=== PATIENT | female | born 2000 | race Caucasian/White ===

== ENCOUNTER 2021-02-04 15:05 | Emergency (ER) | payer OTHER, SELFPAY ==
--- NOTE | ~2021-02-04 | CT_ITS ---
EXAMINATION: CT ABDOMEN AND PELVIS WITHOUT CONTRAST CLINICAL INFORMATION: 20-year-old female patient with rectal bleeding, dark stool. COMPARISON: No pertinent prior studies are available for comparison. TECHNIQUE: Please note that this exam was not a GI bleeding study in view of the lack of IV contrast. Multidetector volumetric imaging was performed from the lung bases through the pubic symphysis following the administration of: Oral contrast: None. Intravenous contrast: None Sagittal and coronal reformatted images were obtained on the technologist workstation. Total exam dose-length product 681 mGy-cm FINDINGS: EQUIPMENT HIRE MANAGER: Unremarkable. LUNG BASES: Visualized lung bases and mediastinum are normal. No pleural effusion. LIVER, GALLBLADDER, BILIARY TREE: The non-contrast liver is normal in size, shape, and attenuation. No focal hepatic lesion or biliary ductal dilatation is present. Focal fatty infiltration is seen adjacent to the ligamentum teres. The gallbladder is contracted in this postprandial patient. PANCREAS: Normal; no mass or surrounding fluid. SPLEEN: Normal size. No focal lesion. Small accessory spleen is present. ADRENAL GLANDS: Normal; no mass. KIDNEYS AND URETERS: The kidneys are normal in size, shape, and attenuation. No hydronephrosis, hydroureter, or calculi seen. No perinephric stranding. BLADDER: Empty. GASTROINTESTINAL TRACT: Stomach and small bowel non-dilated. No colonic wall thickening or pericolonic inflammatory changes. A small amount of radiopaque material is seen in the stomach having been recently ingested. Also, a small amount of radiopaque material is seen in a normal appendix. No free fluid or free air. ABDOMINAL WALL: No hernia seen. LYMPHOVASCULAR STRUCTURES: No lymphadenopathy. However, small lymph nodes are seen in the small bowel mesentery particularly in the right lower quadrant. The aorta is normal in caliber. PELVIC VISCERA: Anteverted uterus is normal in size and shape. Immature follicles are present in both ovaries. No free fluid. OSSEOUS STRUCTURES: No acute or suspicious osseous abnormality. CT/CT abdomen pelvis wo con IMPRESSION: No significant abnormality seen.
[2021-02-04 15:15] VITALS: BP 117/78; PULSE 84; RESP 16; TEMP 36.8; O2SAT 100; BMI 29.1
[2021-02-04 17:25] LABS: MANUAL DIFF FLAG NO
[2021-02-04 17:26] LABS: Basophils Percent Auto 0.2 % (0-2); Eosinophils Absolute Auto 0.1 X10*3/uL (0.0-0.4); Eosinophils Percent Auto 0.9 % (0-4); Hematocrit 41.2 % (37-47); Hemoglobin 13.3 g/dl (12.0-16.0); Imm Gran Abs Auto 0.02 X10*3/uL (0.00-0.03); Imm Gran Pct Auto 0.2 % (0.0-0.4); Lymphocytes Absolute Auto 2.8 X10*3/uL (1.2-4.9); Mean Corpuscular HGB Conc 32.3 g/dl (31.0-35.0); Mean Corpuscular Hemoglobin 25.1 pg (27.0-33.0); Mean Corpuscular Volume 77.7 fL (80-98); Mean Platelet Volume 10.6 fL (9.4-12.3); Monocytes Absolute Auto 0.7 X10*3/uL (0.1-1.2); Neutrophils Absolute Auto 4.6 X10*3/uL (2.0-8.3); Neutrophils Percent Auto 56.7 % (45-73); Platelet Count 309 X10*3/uL (160-400); Red Cell Distribution Width 13.8 % (11.0-16.0); White Blood Count 8.1 X10*3/uL (4.8-10.8)
[2021-02-04 17:41] LABS: Anion Gap 13 (12-20); Blood Urea Nitrogen 12 mg/dL (9-16); Carbon Dioxide 25 mmol/L (22-29); Chloride 104 mmol/L (96-108); Creatinine Clr Calc Pharmacy 117.7; Estimated Glomerular Filt Rate > 60; Glucose Random 86 mg/dL (60-115); Potassium 4.1 mmol/L (3.3-5.1); Sodium 138 mmol/L (135-145)
[2021-02-04 19:08] LABS: MANUAL DIFF FLAG NO
[2021-02-04 19:09] LABS: Basophils Percent Auto 0.2 % (0-2); Eosinophils Absolute Auto 0.1 X10*3/uL (0.0-0.4); Eosinophils Percent Auto 0.9 % (0-4); Hematocrit 40.2 % (37-47); Hemoglobin 13.4 g/dl (12.0-16.0); Imm Gran Abs Auto 0.01 X10*3/uL (0.00-0.03); Imm Gran Pct Auto 0.1 % (0.0-0.4); Lymphocytes Absolute Auto 2.9 X10*3/uL (1.2-4.9); Lymphocytes Percent Auto 34.2 % (20-40); Mean Corpuscular HGB Conc 33.3 g/dl (31.0-35.0); Mean Corpuscular Hemoglobin 25.8 pg (27.0-33.0); Mean Corpuscular Volume 77.5 fL (80-98); Monocytes Absolute Auto 0.6 X10*3/uL (0.1-1.2); Monocytes Percent Auto 7.1 % (2-11); Neutrophils Absolute Auto 4.9 X10*3/uL (2.0-8.3); Neutrophils Percent Auto 57.5 % (45-73); Platelet Count 319 X10*3/uL (160-400); Red Blood Count 5.19 X10*6/uL (4.20-5.50); Red Cell Distribution Width 13.8 % (11.0-16.0); White Blood Count 8.5 X10*3/uL (4.8-10.8)
[2021-02-04 19:16] LABS: INTERNATIONAL NORM RATIO 1.2 (0.9-1.1); Prothrombin Time 13.7 SEC (10.8-13.0)
[2021-02-04 19:19] LABS: Partial Thromboplastin Time 36.7 SEC (24.1-38.0)
[2021-02-04 19:36] LABS: Alanine Aminotransferase 22 U/L (0-31); Albumin Level 4.3 g/dL (3.5-5.0); Alkaline Phosphatase 94 U/L (39-117); Anion Gap 14 (12-20); Aspartate Amino Transferase 19 U/L (5-31); Bilirubin Direct 0.2 mg/dL (0.0-0.5); Bilirubin Total 0.4 mg/dL (0.0-1.0); Blood Urea Nitrogen 11 mg/dL (9-16); Calcium 8.7 mg/dL (8.4-10.2); Carbon Dioxide 23 mmol/L (22-29); Chloride 104 mmol/L (96-108); Creatinine Clr Calc Pharmacy 114.8; Estimated Glomerular Filt Rate > 60; Glucose Random 91 mg/dL (60-115); Magnesium 2.1 mg/dL (1.6-2.6); Potassium 3.6 mmol/L (3.3-5.1); Sodium 137 mmol/L (135-145); Total Protein 7.7 g/dL (6.5-8.0)
[2021-02-04 19:42] LABS: HCG Quantitative < 2 mIU/mL
[2021-02-04 20:37] VITALS: BP 111/76; PULSE 82; RESP 18; O2SAT 100
--- NOTE | 2021-02-04 20:47 | ED_ITS ---
HPI - GI Bleed General Chief complaint: General Medical <MAHAMED Sparks - Last Filed: 02/04/21 20:56> Stated complaint: Personal <MAHAMED Sparks Last Filed: 02/04/21 20:56> Time Seen by Provider: 02/04/21 18:23 <MAHAMED Sparks Last Filed: 02/04/21 20:56> Source: patient and family <MAHAMED Sparks Last Filed: 02/04/21 20:56> Mode of arrival: ambulatory <MAHAMED Sparks Last Filed: 02/04/21 20:56> Limitations: no limitations <MAHAMED Sparks Last Filed: 02/04/21 20:56> History of Present Illness HPI Narrative: 20-year-old female with no significant past medical history presenting to the ED with complaints of intermittent bloody stools for the past month with bright red blood and dark stools worse within the past couple days with clots in the toilet and when wiping even without a bowel movement. Reports she has associated intermittent abdominal pain. Reports that there is a long family history of Crohn's disease and cancer. Patient denies any fevers, nausea/vomiting, chest pain, shortness of breath, vomiting any blood, back pain, hematuria, dysuria, vaginal discharge, diarrhea or constipation or any other symptoms complaints or concerns at this time. Denies being on any blood thinners. <MAHAMED Sparks Last Filed: 02/04/21 20:56> MD complaint: blood on toilet paper, melena, blood streaked stool and gross hematochezia <MAHAMED Sparks Last Filed: 02/04/21 20:56> Onset (ago): month(s) (Over the past month worse within this past week) <MAHAMED Sparks Last Filed: 02/04/21 20:56> Pain Consistency: intermittent <MAHAMED Sparks Last Filed: 02/04/21 20:56> Severity: moderate <MAHAMED Sparks Last Filed: 02/04/21 20:56> Relieving factors: none <MAHAMED Sparks Last Filed: 02/04/21 20:56> Exacerbating factors: bowel movement <MAHAMED Sparks Last Filed: 02/04/21 20:56> Associated symptoms: abdominal pain <MAHAMED Sparks Last Filed: 02/04/21 20:56> Treatments Prior to Arrival: none <MAHAMED Sparks Last Filed: 02/04/21 20:56> Related Data Allergies/Adverse reactions: Allergies Allergy/AdvReac Type Severity Reaction Status Date / Time No Known Allergies Allergy Verified 02/04/21 18:47 <MAHAMED Sparks - Last Filed: 02/04/21 20:56> Review of Systems Review of Systems: Constitutional : No Weight loss, No Fever, No Chills, No Night Sweats, No Fatigue, NoMalaise ENT/Mouth: No ear pain, No sore throat, No Difficulty swallowing Cardiovascular : No Chest Pain, No SOB, No Dyspnea on Exertion, No Orthopnea, NoEdema, No Palpitations Respiratory : No Cough, No Sputum, No Wheezing, No Dyspnea Gastrointestinal : + Abdominal pain, + Melena, + Hematochezia, No Nausea, No Vomiting, No Diarrhea Genitourinary : No irregular bleeding, No Dysuria, No Urinary Frequency, No Hematuria,No Urinary Incontinence, No Urgency, No Flank Pain Musculoskeletal : No joint pain, No Myalgias, No Joint Swelling Skin : No Skin Lesions, No rash Neuro : No Weakness, No Numbness, No Paresthesias, No Loss of Consciousness, NoDizziness, No Headache Psych : No Social Issues, Heme/Lymph: No Bruising, No Bleeding,No Lymphadenopathy Endocrine : No Polyuria, No Polydipsia, No Temperature Intolerance <MAHAMED Sparks Last Filed: 02/04/21 20:56> Yes all other systems are reviewed and are negative <MAHAMED Sparks Last Filed: 02/04/21 20:56> [facility] Past Medical History Attestation statement: The following information was validated with the patient. <MAHAMED Sparks Last Filed: 02/04/21 20:56> Social History Social History: Social History Advance Directives: No Advance Directives Information Provided: Yes <MAHAMED Sparks Last Filed: 02/04/21 20:56> Physical Exam Vital Signs: Vital Signs: Last Vital Signs Temp 98.2 F 02/04/21 15:15 Pulse 82 02/04/21 20:37 Resp 18 02/04/21 20:37 BP 111/76 02/04/21 20:37 Pulse Ox 100 02/04/21 20:37 Body Mass Index 29.1 vital signs have been reviewed as normal and appeared to be correct. Blood pressure normal. Heart rate normal. Respiration rate normal. Temperature norm al. Oxygen saturation normal. <MAHAMED Sparks - Last Filed: 02/04/21 20:56> Vital Signs: Last Vital Signs Temp 98.2 F 02/04/21 15:15 Pulse 82 02/04/21 20:37 Resp 18 02/04/21 20:37 BP 111/76 02/04/21 20:37 Pulse Ox 100 02/04/21 20:37 Body Mass Index 29.1 <Belle Zaman MD - Last Filed: 02/04/21 22:31> Appearance: Alert. Oriented X3. No acute distress. Head: Normal external exam. Normocephalic. Eyes: PERRLA. EOMI. Conjunctiva and sclera normal. Eyelids normal. ENT: Pharynx normal. Uvula midline. Moist mucous membranes. Neck: Normal inspection. Neck supple. FROM. No adenopathy. No meningeal signs. CVS: Normal heart rate and rhythm. Heart sound normal. No murmurs noted. Pulses normal throughout. Respiratory: No respiratory distress. Painless inspiration. Breath sounds normal. No wheezes/rales/rhonchi noted. Chest nontender. No accessory muscle usage noted or decreased air movement noted. Abdomen: Soft and nontender. Nondistended. No guarding. No rigidity. Bowel sounds normal in all 4 quadrants. No distention noted. No organomegaly noted. No visible injury noted. No rebound tenderness. Negative Rovsing sign. Negative obturator's sign. Negative psoas sign. Negative Dickens sign. : Mail Room present Neurpa, PCT. Normal external exam. No hemorrhoids noted. Normal sphincter tone. No internal hemorrhoids noted. Not consistent with rectal prolapse or fecal impaction. No lesion/anal fissures/f istula/laceration/excoriation/mass noted. Heme-positive stool with light brown colored stool. Back: No CVA tenderness. Full range of motion noted. Skin: Skin warm and dry. Normal skin color. Normal skin turgor. No rashes/lesions/lacerations noted. Extremities: Extremities exhibit normal range of motion. Extremities nontender. Neuro: Oriented X 3. No motor deficit. No sensory deficit. Reflexes normal. <MAHAMED Sparks - Last Filed: 02/04/21 20:56> Course Course Course Narrative: 18:50pm - 20-year-old female with no significant past medical history presenting to the ED with complaints of intermittent bloody stools for the past month with bright red blood and dark stools worse within the past couple days with clots in the toilet and when wiping even without a bowel movement. Reports she has associated intermittent abdominal pain. - on exam patient is alert and oriented x3. Not in any acute distress. Vital signs are stable within normal limits. Abdomen is soft and nontender. Not consistent with acute abdomen. On rectal exam patient is positive for heme stool occult. No external or internal hemorrhoids noted. Normal sphincter tone. - Plan: Labs, UA, UHCG, CT scan of abdomen and pelvis without IV contrast provide a L of IV fluids and re-evaluate. <MAHAMED Sparks - Last Filed: 02/04/21 20:56> I received sign-out from MAHAMED Valdivia, CT scan shows no acute pathology. Urinalysis negative test negative. White test negative. I discussed the results with the patient and her mother, patient will likely need GI follow-up LUNG BASES: Visualized lung bases and mediastinum are normal. No pleural effusion. LIVER, GALLBLADDER, BILIARY TREE: The non-contrast liver is normal in size, shape, and attenuation. No focal hepatic lesion or biliary ductal dilatation is present. Focal fatty infiltration is seen adjacent to the ligamentum teres. The gallbladder is contracted in this postprandial patient. PANCREAS: Normal; no mass or surrounding fluid. SPLEEN: Normal size. No focal lesion. Small accessory spleen is present. ADRENAL GLANDS: Normal; no mass. KIDNEYS AND URETERS: The kidneys are normal in size, shape, and attenuation. No hydronephrosis, hydroureter, or calculi seen. No perinephric stranding. BLADDER: Empty. GASTROINTESTINAL TRACT: Stomach and small bowel non-dilated. No colonic wall thickening or pericolonic inflammatory changes. A small amount of radiopaque material is seen in the stomach having been recently ingested. Also, a small amount of radiopaque material is seen in a normal appendix. No free fluid or free air. ABDOMINAL WALL: No hernia seen. LYMPHOVASCULAR STRUCTURES: No lymphadenopathy. However, small lymph nodes are seen in the small bowel mesentery particularly in the right lower quadrant. The aorta is normal in caliber. PELVIC VISCERA: Anteverted uterus is normal in size and shape. Immature follicles are present in both ovaries. No free fluid. OSSEOUS STRUCTURES: No acute or suspicious osseous abnormality. CT/CT abdomen pelvis wo con IMPRESSION: No significant abnormality seen. <Belle Zaman MD - Last Filed: 02/04/21 22:31> Reevaluation(s) Reevaluation #1: - all labs within normal limits. Serum quant negative for . - awaiting CT scan of abdomen and pelvis. Sign out to Nazario, EVS MANAGER at this time pending CT scan of abdomen and pelvis. <MAHAMED Sparks - Last Filed: 02/04/21 20:56> Time: 20:55 <MAHAMED Sparks - Last Filed: 02/04/21 20:56> MDM - GI Bleed Differential Diagnosis Differential diagnosis: Likely hemorrhoids, Upper gastrointestinal hemorrhage, Lower gastrointestinal hemorrhage, hematochezia, melena and anal fissure <MAHAMED Sparks - Last Filed: 02/04/21 20:56> Medical Records Attestation: I reviewed the patient's medical records. <MAHAMED Sparks - Last Filed: 02/04/21 20:56> Lab Data Attestation: I reviewed the patient's lab results. <MAHAMED Sparks - Last Filed: 02/04/21 20:56> Result diagrams: : 02/04/21 19:02 02/04/21 19:03 <MAHAMED Sparks - Last Filed: 02/04/21 20:56> Labs: Lab Results 02/04/21 02/04/21 02/04/21 Range/Units 16:50 16:50 16:50 WBC 8.1 (4.8-10.8) X10*3/uL RBC 5.30 (4.20-5.50) X10*6/uL Hgb 13.3 (12.0-16.0) g/dl Hct 41.2 (37-47) % MCV 77.7 L (80-98) fL MCH 25.1 L (27.0-33.0) pg MCHC 32.3 (31.0-35.0) g/dl RDW 13.8 (11.0-16.0) % Plt Count 309 (160-400) X10*3/uL MPV 10.6 (9.4-12.3) fL Immature Gran % (Auto) 0.2 (0.0-0.4) % Neut % (Auto) 56.7 (45-73) % Lymph % (Auto) 34.0 (20-40) % Mccormick % (Auto) 8.0 (2-11) % Eos % (Auto) 0.9 (0-4) % Baso % (Auto) 0.2 (0-2) % Lymph # (Auto) 2.8 (1.2-4.9) X10*3/uL Mccormick # (Auto) 0.7 (0.1-1.2) X10*3/uL Eos # (Auto) 0.1 (0.0-0.4) X10*3/uL Baso # (Auto) 0.0 (0.0-0.2) X10*3/uL Abs Immat Gran (auto) 0.02 (0.00-0.03) X10*3/uL Absolute Neuts (auto) 4.6 (2.0-8.3) X10*3/uL Absolute Nucleated RBC 0.000 (0.0-0.012) X10*3/uL Nucleated RBC % (auto) 0.0 (0.0-0.2) /100WBC Hold Purple Top SEE NOTE PT (10.8-13.0) SEC INR (0.9-1.1) APTT (24.1-38.0) SEC Hold Blue Top SEE NOTE Sodium (135-145) mmol/L Potassium (3.3-5.1) mmol/L Chloride (96-108) mmol/L Carbon Dioxide (22-29) mmol/L Anion Gap (12-20) BUN (9-16) mg/dL Creatinine (0.5-1.4) mg/dL Estim Creat Clear Calc Estimated GFR Random Glucose (60-115) mg/dL Calcium (8.4-10.2) mg/dL Magnesium (1.6-2.6) mg/dL Total Bilirubin (0.0-1.0) mg/dL Direct Bilirubin (0.0-0.5) mg/dL AST (5-31) U/L ALT (0-31) U/L Alkaline Phosphatase (39-117) U/L Total Protein (6.5-8.0) g/dL Albumin (3.5-5.0) g/dL Beta HCG, Quant mIU/mL Urine Color Urine Appearance Urine pH (5.0-8.0) Ur Specific [place] (1.005-1.025) Urine Protein (NEG-TRACE) MG/DL Urine Glucose (UA) (NEG) MG/DL Urine Ketones (NEG) MG/DL Urine Blood (NEG) Urine Nitrite (NEG) Ur Leukocyte Esterase (NEG) Urine Test (NEGATIVE) Stool Occult Blood (NEGATIVE) 02/04/21 02/04/21 02/04/21 Range/Units 16:50 19:02 19:02 WBC 8.5 (4.8-10.8) X10*3/uL RBC 5.19 (4.20-5.50) X10*6/uL Hgb 13.4 (12.0-16.0) g/dl Hct 40.2 (37-47) % MCV 77.5 L (80-98) fL MCH 25.8 L (27.0-33.0) pg MCHC 33.3 (31.0-35.0) g/dl RDW 13.8 (11.0-16.0) % Plt Count 319 (160-400) X10*3/uL MPV 10.0 (9.4-12.3) fL Immature Gran % (Auto) 0.1 (0.0-0.4) % Neut % (Auto) 57.5 (45-73) % Lymph % (Auto) 34.2 (20-40) % Mccormick % (Auto) 7.1 (2-11) % Eos % (Auto) 0.9 (0-4) % Baso % (Auto) 0.2 (0-2) % Lymph # (Auto) 2.9 (1.2-4.9) X10*3/uL Mccormick # (Auto) 0.6 (0.1-1.2) X10*3/uL Eos # (Auto) 0.1 (0.0-0.4) X10*3/uL Baso # (Auto) 0.0 (0.0-0.2) X10*3/uL Abs Immat Gran (auto) 0.01 (0.00-0.03) X10*3/uL Absolute Neuts (auto) 4.9 (2.0-8.3) X10*3/uL Absolute Nucleated RBC 0.000 (0.0-0.012) X10*3/uL Nucleated RBC % (auto) 0.0 (0.0-0.2) /100WBC Hold Purple Top PT 13.7 H (10.8-13.0) SEC INR 1.2 H (0.9-1.1) APTT 36.7 (24.1-38.0) SEC Hold Blue Top Sodium 138 (135-145) mmol/L Potassium 4.1 (3.3-5.1) mmol/L Chloride 104 (96-108) mmol/L Carbon Dioxide 25 (22-29) mmol/L Anion Gap 13 (12-20) BUN 12 (9-16) mg/dL Creatinine 0.78 (0.5-1.4) mg/dL Estim Creat Clear Calc 117.7 Estimated GFR > 60 Random Glucose 86 (60-115) mg/dL Calcium 9.0 (8.4-10.2) mg/dL Magnesium (1.6-2.6) mg/dL Total Bilirubin (0.0-1.0) mg/dL Direct Bilirubin (0.0-0.5) mg/dL AST (5-31) U/L ALT (0-31) U/L Alkaline Phosphatase (39-117) U/L Total Protein (6.5-8.0) g/dL Albumin (3.5-5.0) g/dL Beta HCG, Quant mIU/mL Urine Color Urine Appearance Urine pH (5.0-8.0) Ur Specific [place] (1.005-1.025) Urine Protein (NEG-TRACE) MG/DL Urine Glucose (UA) (NEG) MG/DL Urine Ketones (NEG) MG/DL Urine Blood (NEG) Urine Nitrite (NEG) Ur Leukocyte Esterase (NEG) Urine Test (NEGATIVE) Stool Occult Blood (NEGATIVE) 02/04/21 02/04/21 02/04/21 Range/Units 19:03 20:40 20:40 WBC (4.8-10.8) X10*3/uL RBC (4.20-5.50) X10*6/uL Hgb (12.0-16.0) g/dl Hct (37-47) % MCV (80-98) fL MCH (27.0-33.0) pg MCHC (31.0-35.0) g/dl RDW (11.0-16.0) % Plt Count (160-400) X10*3/uL MPV (9.4-12.3) fL Immature Gran % (Auto) (0.0-0.4) % Neut % (Auto) (45-73) % Lymph % (Auto) (20-40) % Mccormick % (Auto) (2-11) % Eos % (Auto) (0-4) % Baso % (Auto) (0-2) % Lymph # (Auto) (1.2-4.9) X10*3/uL Mccormick # (Auto) (0.1-1.2) X10*3/uL Eos # (Auto) (0.0-0.4) X10*3/uL Baso # (Auto) (0.0-0.2) X10*3/uL Abs Immat Gran (auto) (0.00-0.03) X10*3/uL Absolute Neuts (auto) (2.0-8.3) X10*3/uL Absolute Nucleated RBC (0.0-0.012) X10*3/uL Nucleated RBC % (auto) (0.0-0.2) /100WBC Hold Purple Top PT (10.8-13.0) SEC INR (0.9-1.1) APTT (24.1-38.0) SEC Hold Blue Top Sodium 137 (135-145) mmol/L Potassium 3.6 (3.3-5.1) mmol/L Chloride 104 (96-108) mmol/L Carbon Dioxide 23 (22-29) mmol/L Anion Gap 14 (12-20) BUN 11 (9-16) mg/dL Creatinine 0.80 (0.5-1.4) mg/dL Estim Creat Clear Calc 114.8 Estimated GFR > 60 Random Glucose 91 (60-115) mg/dL Calcium 8.7 (8.4-10.2) mg/dL Magnesium 2.1 (1.6-2.6) mg/dL Total Bilirubin 0.4 (0.0-1.0) mg/dL Direct Bilirubin 0.2 (0.0-0.5) mg/dL AST 19 (5-31) U/L ALT 22 (0-31) U/L Alkaline Phosphatase 94 (39-117) U/L Total Protein 7.7 (6.5-8.0) g/dL Albumin 4.3 (3.5-5.0) g/dL Beta HCG, Quant < 2 mIU/mL Urine Color YELLOW Urine Appearance CLEAR Urine pH 6.0 (5.0-8.0) Ur Specific [place] 1.020 (1.005-1.025) Urine Protein NEG (NEG-TRACE) MG/DL Urine Glucose (UA) NEG (NEG) MG/DL Urine Ketones NEG (NEG) MG/DL Urine Blood NEG (NEG) Urine Nitrite NEG (NEG) Ur Leukocyte Esterase NEG (NEG) Urine Test (NEGATIVE) Stool Occult Blood NEGATIVE (NEGATIVE) 02/04/21 Range/Units 20:40 WBC (4.8-10.8) X10*3/uL RBC (4.20-5.50) X10*6/uL Hgb (12.0-16.0) g/dl Hct (37-47) % MCV (80-98) fL MCH (27.0-33.0) pg MCHC (31.0-35.0) g/dl RDW (11.0-16.0) % Plt Count (160-400) X10*3/uL MPV (9.4-12.3) fL Immature Gran % (Auto) (0.0-0.4) % Neut % (Auto) (45-73) % Lymph % (Auto) (20-40) % Mccormick % (Auto) (2-11) % Eos % (Auto) (0-4) % Baso % (Auto) (0-2) % Lymph # (Auto) (1.2-4.9) X10*3/uL Mccormick # (Auto) (0.1-1.2) X10*3/uL Eos # (Auto) (0.0-0.4) X10*3/uL Baso # (Auto) (0.0-0.2) X10*3/uL Abs Immat Gran (auto) (0.00-0.03) X10*3/uL Absolute Neuts (auto) (2.0-8.3) X10*3/uL Absolute Nucleated RBC (0.0-0.012) X10*3/uL Nucleated RBC % (auto) (0.0-0.2) /100WBC Hold Purple Top PT (10.8-13.0) SEC INR (0.9-1.1) APTT (24.1-38.0) SEC Hold Blue Top Sodium (135-145) mmol/L Potassium (3.3-5.1) mmol/L Chloride (96-108) mmol/L Carbon Dioxide (22-29) mmol/L Anion Gap (12-20) BUN (9-16) mg/dL Creatinine (0.5-1.4) mg/dL Estim Creat Clear Calc Estimated GFR Random Glucose (60-115) mg/dL Calcium (8.4-10.2) mg/dL Magnesium (1.6-2.6) mg/dL Total Bilirubin (0.0-1.0) mg/dL Direct Bilirubin (0.0-0.5) mg/dL AST (5-31) U/L ALT (0-31) U/L Alkaline Phosphatase (39-117) U/L Total Protein (6.5-8.0) g/dL Albumin (3.5-5.0) g/dL Beta HCG, Quant mIU/mL Urine Color Urine Appearance Urine pH (5.0-8.0) Ur Specific [place] (1.005-1.025) Urine Protein (NEG-TRACE) MG/DL Urine Glucose (UA) (NEG) MG/DL Urine Ketones (NEG) MG/DL Urine Blood (NEG) Urine Nitrite (NEG) Ur Leukocyte Esterase (NEG) Urine Test NEGATIVE (NEGATIVE) Stool Occult Blood (NEGATIVE) <MAHAMED Sparks - Last Filed: 02/04/21 20:56> Lab Results 02/04/21 02/04/21 02/04/21 Range/Units 16:50 16:50 16:50 WBC 8.1 (4.8-10.8) X10*3/uL RBC 5.30 (4.20-5.50) X10*6/uL Hgb 13.3 (12.0-16.0) g/dl Hct 41.2 (37-47) % MCV 77.7 L (80-98) fL MCH 25.1 L (27.0-33.0) pg MCHC 32.3 (31.0-35.0) g/dl RDW 13.8 (11.0-16.0) % Plt Count 309 (160-400) X10*3/uL MPV 10.6 (9.4-12.3) fL Immature Gran % (Auto) 0.2 (0.0-0.4) % Neut % (Auto) 56.7 (45-73) % Lymph % (Auto) 34.0 (20-40) % Mccormick % (Auto) 8.0 (2-11) % Eos % (Auto) 0.9 (0-4) % Baso % (Auto) 0.2 (0-2) % Lymph # (Auto) 2.8 (1.2-4.9) X10*3/uL Mccormick # (Auto) 0.7 (0.1-1.2) X10*3/uL Eos # (Auto) 0.1 (0.0-0.4) X10*3/uL Baso # (Auto) 0.0 (0.0-0.2) X10*3/uL Abs Immat Gran (auto) 0.02 (0.00-0.03) X10*3/uL Absolute Neuts (auto) 4.6 (2.0-8.3) X10*3/uL Absolute Nucleated RBC 0.000 (0.0-0.012) X10*3/uL Nucleated RBC % (auto) 0.0 (0.0-0.2) /100WBC Hold Purple Top SEE NOTE PT (10.8-13.0) SEC INR (0.9-1.1) APTT (24.1-38.0) SEC Hold Blue Top SEE NOTE Sodium (135-145) mmol/L Potassium (3.3-5.1) mmol/L Chloride (96-108) mmol/L Carbon Dioxide (22-29) mmol/L Anion Gap (12-20) BUN (9-16) mg/dL Creatinine (0.5-1.4) mg/dL Estim Creat Clear Calc Estimated GFR Random Glucose (60-115) mg/dL Calcium (8.4-10.2) mg/dL Magnesium (1.6-2.6) mg/dL Total Bilirubin (0.0-1.0) mg/dL Direct Bilirubin (0.0-0.5) mg/dL AST (5-31) U/L ALT (0-31) U/L Alkaline Phosphatase (39-117) U/L Total Protein (6.5-8.0) g/dL Albumin (3.5-5.0) g/dL Beta HCG, Quant mIU/mL Urine Color Urine Appearance Urine pH (5.0-8.0) Ur Specific [place] (1.005-1.025) Urine Protein (NEG-TRACE) MG/DL Urine Glucose (UA) (NEG) MG/DL Urine Ketones (NEG) MG/DL Urine Blood (NEG) Urine Nitrite (NEG) Ur Leukocyte Esterase (NEG) Urine Test (NEGATIVE) Stool Occult Blood (NEGATIVE) 02/04/21 02/04/21 02/04/21 Range/Units 16:50 19:02 19:02 WBC 8.5 (4.8-10.8) X10*3/uL RBC 5.19 (4.20-5.50) X10*6/uL Hgb 13.4 (12.0-16.0) g/dl Hct 40.2 (37-47) % MCV 77.5 L (80-98) fL MCH 25.8 L (27.0-33.0) pg MCHC 33.3 (31.0-35.0) g/dl RDW 13.8 (11.0-16.0) % Plt Count 319 (160-400) X10*3/uL MPV 10.0 (9.4-12.3) fL Immature Gran % (Auto) 0.1 (0.0-0.4) % Neut % (Auto) 57.5 (45-73) % Lymph % (Auto) 34.2 (20-40) % Mccormick % (Auto) 7.1 (2-11) % Eos % (Auto) 0.9 (0-4) % Baso % (Auto) 0.2 (0-2) % Lymph # (Auto) 2.9 (1.2-4.9) X10*3/uL Mccormick # (Auto) 0.6 (0.1-1.2) X10*3/uL Eos # (Auto) 0.1 (0.0-0.4) X10*3/uL Baso # (Auto) 0.0 (0.0-0.2) X10*3/uL Abs Immat Gran (auto) 0.01 (0.00-0.03) X10*3/uL Absolute Neuts (auto) 4.9 (2.0-8.3) X10*3/uL Absolute Nucleated RBC 0.000 (0.0-0.012) X10*3/uL Nucleated RBC % (auto) 0.0 (0.0-0.2) /100WBC Hold Purple Top PT 13.7 H (10.8-13.0) SEC INR 1.2 H (0.9-1.1) APTT 36.7 (24.1-38.0) SEC Hold Blue Top Sodium 138 (135-145) mmol/L Potassium 4.1 (3.3-5.1) mmol/L Chloride 104 (96-108) mmol/L Carbon Dioxide 25 (22-29) mmol/L Anion Gap 13 (12-20) BUN 12 (9-16) mg/dL Creatinine 0.78 (0.5-1.4) mg/dL Estim Creat Clear Calc 117.7 Estimated GFR > 60 Random Glucose 86 (60-115) mg/dL Calcium 9.0 (8.4-10.2) mg/dL Magnesium (1.6-2.6) mg/dL Total Bilirubin (0.0-1.0) mg/dL Direct Bilirubin (0.0-0.5) mg/dL AST (5-31) U/L ALT (0-31) U/L Alkaline Phosphatase (39-117) U/L Total Protein (6.5-8.0) g/dL Albumin (3.5-5.0) g/dL Beta HCG, Quant mIU/mL Urine Color Urine Appearance Urine pH (5.0-8.0) Ur Specific [place] (1.005-1.025) Urine Protein (NEG-TRACE) MG/DL Urine Glucose (UA) (NEG) MG/DL Urine Ketones (NEG) MG/DL Urine Blood (NEG) Urine Nitrite (NEG) Ur Leukocyte Esterase (NEG) Urine Test (NEGATIVE) Stool Occult Blood (NEGATIVE) 02/04/21 02/04/21 02/04/21 Range/Units 19:03 20:40 20:40 WBC (4.8-10.8) X10*3/uL RBC (4.20-5.50) X10*6/uL Hgb (12.0-16.0) g/dl Hct (37-47) % MCV (80-98) fL MCH (27.0-33.0) pg MCHC (31.0-35.0) g/dl RDW (11.0-16.0) % Plt Count (160-400) X10*3/uL MPV (9.4-12.3) fL Immature Gran % (Auto) (0.0-0.4) % Neut % (Auto) (45-73) % Lymph % (Auto) (20-40) % Mccormick % (Auto) (2-11) % Eos % (Auto) (0-4) % Baso % (Auto) (0-2) % Lymph # (Auto) (1.2-4.9) X10*3/uL Mccormick # (Auto) (0.1-1.2) X10*3/uL Eos # (Auto) (0.0-0.4) X10*3/uL Baso # (Auto) (0.0-0.2) X10*3/uL Abs Immat Gran (auto) (0.00-0.03) X10*3/uL Absolute Neuts (auto) (2.0-8.3) X10*3/uL Absolute Nucleated RBC (0.0-0.012) X10*3/uL Nucleated RBC % (auto) (0.0-0.2) /100WBC Hold Purple Top PT (10.8-13.0) SEC INR (0.9-1.1) APTT (24.1-38.0) SEC Hold Blue Top Sodium 137 (135-145) mmol/L Potassium 3.6 (3.3-5.1) mmol/L Chloride 104 (96-108) mmol/L Carbon Dioxide 23 (22-29) mmol/L Anion Gap 14 (12-20) BUN 11 (9-16) mg/dL Creatinine 0.80 (0.5-1.4) mg/dL Estim Creat Clear Calc 114.8 Estimated GFR > 60 Random Glucose 91 (60-115) mg/dL Calcium 8.7 (8.4-10.2) mg/dL Magnesium 2.1 (1.6-2.6) mg/dL Total Bilirubin 0.4 (0.0-1.0) mg/dL Direct Bilirubin 0.2 (0.0-0.5) mg/dL AST 19 (5-31) U/L ALT 22 (0-31) U/L Alkaline Phosphatase 94 (39-117) U/L Total Protein 7.7 (6.5-8.0) g/dL Albumin 4.3 (3.5-5.0) g/dL Beta HCG, Quant < 2 mIU/mL Urine Color YELLOW Urine Appearance CLEAR Urine pH 6.0 (5.0-8.0) Ur Specific [place] 1.020 (1.005-1.025) Urine Protein NEG (NEG-TRACE) MG/DL Urine Glucose (UA) NEG (NEG) MG/DL Urine Ketones NEG (NEG) MG/DL Urine Blood NEG (NEG) Urine Nitrite NEG (NEG) Ur Leukocyte Esterase NEG (NEG) Urine Test (NEGATIVE) Stool Occult Blood NEGATIVE (NEGATIVE) 02/04/21 Range/Units 20:40 WBC (4.8-10.8) X10*3/uL RBC (4.20-5.50) X10*6/uL Hgb (12.0-16.0) g/dl Hct (37-47) % MCV (80-98) fL MCH (27.0-33.0) pg MCHC (31.0-35.0) g/dl RDW (11.0-16.0) % Plt Count (160-400) X10*3/uL MPV (9.4-12.3) fL Immature Gran % (Auto) (0.0-0.4) % Neut % (Auto) (45-73) % Lymph % (Auto) (20-40) % Mccormick % (Auto) (2-11) % Eos % (Auto) (0-4) % Baso % (Auto) (0-2) % Lymph # (Auto) (1.2-4.9) X10*3/uL Mccormick # (Auto) (0.1-1.2) X10*3/uL Eos # (Auto) (0.0-0.4) X10*3/uL Baso # (Auto) (0.0-0.2) X10*3/uL Abs Immat Gran (auto) (0.00-0.03) X10*3/uL Absolute Neuts (auto) (2.0-8.3) X10*3/uL Absolute Nucleated RBC (0.0-0.012) X10*3/uL Nucleated RBC % (auto) (0.0-0.2) /100WBC Hold Purple Top PT (10.8-13.0) SEC INR (0.9-1.1) APTT (24.1-38.0) SEC Hold Blue Top Sodium (135-145) mmol/L Potassium (3.3-5.1) mmol/L Chloride (96-108) mmol/L Carbon Dioxide (22-29) mmol/L Anion Gap (12-20) BUN (9-16) mg/dL Creatinine (0.5-1.4) mg/dL Estim Creat Clear Calc Estimated GFR Random Glucose (60-115) mg/dL Calcium (8.4-10.2) mg/dL Magnesium (1.6-2.6) mg/dL Total Bilirubin (0.0-1.0) mg/dL Direct Bilirubin (0.0-0.5) mg/dL AST (5-31) U/L ALT (0-31) U/L Alkaline Phosphatase (39-117) U/L Total Protein (6.5-8.0) g/dL Albumin (3.5-5.0) g/dL Beta HCG, Quant mIU/mL Urine Color Urine Appearance Urine pH (5.0-8.0) Ur Specific [place] (1.005-1.025) Urine Protein (NEG-TRACE) MG/DL Urine Glucose (UA) (NEG) MG/DL Urine Ketones (NEG) MG/DL Urine Blood (NEG) Urine Nitrite (NEG) Ur Leukocyte Esterase (NEG) Urine Test NEGATIVE (NEGATIVE) Stool Occult Blood (NEGATIVE) <Belle Zaman MD - Last Filed: 02/04/21 22:31> Discharge Plan Discharge Clinical Impression: Rectal bleeding <MAHAMED Sparks - Last Filed: 02/04/21 20:56> Patient Disposition: Home, Self-Care <MAHAMED Sparks - Last Filed: 02/04/21 20:56> Instructions: Rectal Bleeding (ED) <MAHAMED Sparks - Last Filed: 02/04/21 20:56> Additional Instructions: Please follow-up with your primary care physician tomorrow. If you have any worsening or new symptoms, please return to the emergency room or call 911 <MAHAMED Sparks - Last Filed: 02/04/21 20:56> Referrals: Casey Stuart [Physician] - 2 days <MAHAMED Sparks - Last Filed: 02/04/21 20:56>
[2021-02-04 21:25] LABS: Glucose Urine UA NEG (NEG); Leukocyte Esterase Urine NEG (NEG); Nitrite Urine NEG (NEG); Urine Blood NEG (NEG); Urine Ketones NEG (NEG); Urine Protein NEG (NEG-TRACE)
[2021-02-04 21:27] LABS: Appearance Urine CLEAR; Color Urine YELLOW
[2021-02-04 21:28] LABS: OBS Int Ctl Valid YES; OBS1 NEGATIVE (NEGATIVE); UPreg QC Valid YES; Urine Pregnancy NEGATIVE (NEGATIVE)
[2021-02-04] MEDS: 0.9 % Sodium Chloride 1,000 ML 999 ML IVCONT (22:46)
[2021-02-04 23:17] VITALS: BP 114/63; PULSE 75; RESP 16; O2SAT 100
== END 2021-02-04 23:42 | disposition home or self-care (01) ==
PROVIDERS: Physician Assistant Medical; Emergency Provider Internal Medicine
DX: K62.5 Hemorrhage of anus and rectum (principal)
CPT/HCPCS: 36415; 74176; 80048; 80076; 81003; 81025; 82272; 83735; 84702; 85025; 85610; 85730; 96360; 99283; 99284

== ENCOUNTER 2022-02-26 13:14 | Emergency (ER) | payer OTHER, SELFPAY ==
--- NOTE | ~2022-02-26 | XR_ITS ---
EXAMINATION: PORTABLE CHEST 1 VIEW CLINICAL INFORMATION: sob, cough . COMPARISON: No recent pertinent prior studies are available for comparison. TECHNIQUE: Portable frontal view of the chest was obtained. FINDINGS: The lungs are well expanded. No focal infiltrate, effusion, edema, or pneumothorax. Cardiac and mediastinal silhouettes are within normal limits for technique. No acute bony abnormality seen. XR/XR chest 1V IMPRESSION: No evidence of acute disease.
[2022-02-26 13:35] VITALS: BP 106/70; PULSE 106; RESP 20; TEMP 36.7; O2SAT 98; BMI 34.0
[2022-02-26 13:58] LABS: Strep A Nucleic Acid Negative (Negative)
[2022-02-26 14:03] LABS: IDNOW Serial# 16C4AD1C; Influenza A Positive (Negative); Influenza B2 Negative (Negative)
--- NOTE | 2022-02-26 15:38 | ED.GENADULT ---
HPI - General Adult General Chief complaint: Upper Respiratory Symptoms Stated complaint: Sore throat/Body aches/Fever Time Seen by Provider: 02/26/22 15:36 Source: patient Mode of arrival: ambulatory Limitations: no limitations History of Present Illness HPI narrative: Is a 21-year-old female presenting to the emergency department with sudden onset body aches, fevers, chills, productive cough, headache, shortness of breath X4 days. Patient tells me that she is not sure what her temperature has been however she knows she has had a fever. She reports a productive cough of thick sputum. She reports a diffuse headache with no vision changes, dizziness. She also denies head trauma. She also reports intermittent shortness of breath worse with coughing. Patient is not on control, denies long travel, no history of PE/DVT. Patient tells me that 1 of her good friends is sick with similar symptoms. She had a negative COVID test on Sunday. She is vaccinated against the flu. She denies chest pain, nausea, vomiting, abdominal pain, dizziness, vision changes, neck pain, head trauma. Onset (ago): day(s) (4) Radiation: non-radiation Severity: moderate Pain Consistency: constant Relieving factors: none Exacerbating factors: none Associated symptoms: cough, fever/chills and shortness of breath Treatments prior to arrival: none Related Data Previous Rx's Medication Instructions Recorded oseltamivir 75 mg capsule (Tamiflu) 75 mg PO BID 5 Days #10 cap 02/26/22 Allergies Allergy/AdvReac Type Severity Reaction Status Date / Time No Known Allergies Allergy Verified 02/04/21 18:47 Review of Systems Review of Systems: Constitutional : No Weight loss, + Fever, + Chills, + Fatigue, + Malaise ENT/Mouth : No sore throat, No Rhinorrhea, + congestion Eyes: No Eye Pain, No Swelling, No Redness Cardiovascular : No Chest Pain, + SOB, No Dyspnea on Exertion, No Orthopnea, No Edema, No Palpitations Respiratory : + Cough, + Sputum, No Wheezing Gastrointestinal : No Nausea, No Vomiting, No Diarrhea, No Constipation, No abdominal Pain, No Hematochezia, No Melena Genitourinary : No Dysuria, No Urinary Frequency, No Hematuria, Musculoskeletal : No joint pain, No Myalgias, No Joint Swelling Skin : No Skin Lesions, No rash Neuro : No Weakness, No Numbness, No Dizziness, No Headache Psych : No Anxiety/Panic, No Depression All other systems reviewed and are negative COUNT INCLUDES THE [facility] Past Medical History Attestation statement: The following information was validated with the patient. Source: old records reviewed and nursing notes reviewed Social History Social History Advance Directives: No Advance Directives Information Provided: No Physical Exam ED Vital Signs: Vital Signs - 24 hr 02/26/22 13:35 Temperature 98.1 F Pulse Rate 106 H Respiratory Rate 20 Blood Pressure 106/70 Pulse Oximetry 98 BMI result Body Mass Index 34.0 Vital signs stable patient is slightly tachycardic however will repeat vitals. Appearance: Alert.? Oriented X3.? No acute distress.? Head: Normocephalic, atraumatic, no step-offs or deformities Eyes: Pupils equal, round and reactive to light.? ENT: Pharynx normal.? Neck: Normal inspection.? Neck supple.? CVS: Normal heart rate and rhythm.? Pulses normal.? Respiratory: No respiratory distress.? Breath sounds normal.? Abdomen: Soft and nontender.? Skin: Skin warm and dry.? Normal skin color.? Normal skin turgor. Extremities: No lower extremity edema.? No calf ttp, negative jacinto b/l. 5/5 strength to bilateral upper and lower extremities Back: No midline tenderness, no C-spine tenderness, full range of motion, no CVA tenderness bilaterally Neuro: Oriented X 3.? No motor deficit.? No sensory deficit. CN 2-12 intact Course Reevaluation(s) Reevaluation #1: Patient is noted to be influenza type A positive. Time: 16:23 Reevaluation #2: X-ray with no acute findings. At this time patient will be discharged home as her symptoms are likely secondary to influenza. Advised on worrisome signs and symptoms and when to return. Comfortable discharge home Time: 16:46 Medical Decision Making [facility] Narrative Medical decision making narrative: 1540 21 yo f presents w/ flu like sx PE benign. Unlikley sinusitis, PE and pna Will rule out covid, influenza, pna Medical Records Medical records reviewed: Yes I reviewed the patient's medical records. Lab Data Lab results reviewed: Yes I reviewed the patient's lab results. Labs: Lab Results 02/26/22 02/26/22 Range/Units 13:41 13:42 Influenza Type A (MAEVE) Positive A (Negative) Influenza Type B (MAEVE) Negative (Negative) Influenza A & B Note See Note S. pyogenes GrpA MAEVE Negative (Negative) Critical Care Time Critical Care Time Critical Care Time: No Discharge Plan Discharge Clinical Impression: Influenza Patient Disposition: Home, Self-Care Instructions: Influenza (ED) Additional Instructions: Take your medications as prescribed. If you were prescribed antibiotics today, it is important that you take your medication to their entirety, do not skip any doses, do not finish them early. Follow-up with your primary care provider this week. Return to the emergency department with new or worsening symptoms. Such as fevers, chills, chest pain, shortness of breath, nausea, vomiting, dizziness, headache, vision changes, lethargy In case of emergency call 911 Prescriptions: New oseltamivir [Tamiflu] 75 mg capsule 75 mg PO BID 5 Days Qty: 10 0RF Referrals: Physician,Unknown J [Primary Care Provider] - Stand Alone Forms: Work/School Release
== END 2022-02-26 17:14 | disposition home or self-care (01) ==
PROVIDERS: Emergency Provider Emergency Medicine
DX: J11.1 Influenza due to unidentified influenza virus with other respiratory manifestations (principal); M79.10 Myalgia, unspecified site; R50.9 Fever, unspecified; Z20.822 Contact with and (suspected) exposure to COVID-19; Z79.899 Other long term (current) drug therapy
CPT/HCPCS: 71045; 87502; 87651; 99283